=== PATIENT | male | born 1955 | race Caucasian/White ===

== ENCOUNTER 2022-11-15 17:32 | Emergency (ER) | payer OTHER, SELFPAY ==
[2022-11-15] VITALS (8 sets, daily range): BP systolic 124–166; BP diastolic 82–108; PULSE 78–100; RESP 16–19; TEMP 36.5; O2SAT 91–98; BMI 33.4
--- NOTE | 2022-11-15 17:44 | XRR_ITS ---
PROCEDURE INFORMATION: Exam: XR Chest Exam date and time: 11/15/2022 5:57 PM Age: 67 years old Clinical indication: Pain; Chest pressure; Additional info: Weakness TECHNIQUE: Imaging protocol: Radiologic exam of the chest. Views: 1 view. COMPARISON: No relevant prior studies available. FINDINGS: Lungs: Lungs are clear bilaterally. Pleural spaces: No pleural effusion. No pneumothorax. Heart/Mediastinum: The cardiac silhouette and mediastinal contours are unremarkable. Vasculature: Vascular calcifications in the aorta. Bones/joints: Unremarkable for age. XR/XR chest 1V portable [id number] IMPRESSION: 1. No acute cardiopulmonary process. 2. Incidental/nonacute findings are listed in the report.
--- NOTE | 2022-11-15 17:48 | ECG_ITS ---
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 Measurements Intervals [place] Rate: 97 P: -4 ID: [id number] QRS: -11 QRSD: 78 T: -10 QT: 325 QTc: 414 Interpretive Statements SINUS RHYTHM WITH OCCASIONAL VENTRICULAR PREMATURE COMPLEXES LOW QRS VOLTAGE IN PRECORDIAL LEADS [QRS DEFLECTION < 1.0 mV IN CHEST LEADS] INFERIOR MYOCARDIAL INFARCTION , PROBABLY OLD [40+ ms Q WAVE AND/OR ST/T ABNORMALITY IN II/aVF] INTERPRETATION BASED ON A DEFAULT AGE OF 40 YEARS No previous ECG available for comparison Electronically Signed On 11-16-2022 14:26:33 CDT by Chai Penn M.D. [id number]
[2022-11-15 17:59] LABS: Basophils # 0.1 10^3/uL (0.0-0.1); Basophils % 0.5 %; Eosinophils # 0.1 10^3/uL (0.0-0.8); Eosinophils % 0.4 %; Hematocrit 43.8 % (42.0-52.0); Hemoglobin 15.1 g/dL (11.7-16.6); Lymphocytes # 1.5 10^3/uL (0.8-4.8); Lymphocytes % 12.8 %; Mean Corpuscular HGB Conc 34.5 g/dL (30.0-36.0); Mean Corpuscular Hemoglobin 31.3 pg (28.0-34.0); Mean Corpuscular Volume 90.7 fl (80-94); Mean Platelet Volume 11.4 fL (7.4-10.4); Monocytes # 0.8 10^3/uL (0.2-0.9); Monocytes % 6.9 %; Neutrophils # 9.06 10^3/uL (1.8-7.7); Neutrophils % 78.6 %; Nucleated Red Blood Cells % 0 %; Platelet Count 178 10^3/cmm (130-400); Red Blood Count 4.83 10^6/uL (4.1-5.3); Red Cell Distribution Width 11.8 % (12.1-15.1); White Blood Count 11.5 10^3/uL (4.0-10.0)
[2022-11-15 18:21] LABS: Alanine Aminotransferase 24 U/L (0-41); Albumin Level 4.1 g/dL (3.5-5.2); Alkaline Phosphatase 58 U/L (40-130); Anion Gap 15.3 (5-19); Aspartate Amino Transferase 24 U/L (0-40); Blood Urea Nitrogen 7 mg/dL (8-23); Calcium 8.4 mg/dL (8.5-10.5); Carbon Dioxide 23 mmol/L (22-29); Chloride 95 mmol/L (98-107); Globulin 2.5 g/dL (1.3-4.6); Glomerular Filtration Rate 135.2 mL/min (90-130); Glucose 177 mg/dL (65-115); Magnesium 1.4 mg/dL (1.7-2.3); Osmolality Calculated 272 mOsm/kg (285-295); Potassium 3.3 mmol/L (3.5-5.1); Sodium 130 mmol/L (136-145); Total Bilirubin 0.9 mg/dL (0.15-1.2); Total Protein 6.6 g/dL (6.6-8.7)
--- NOTE | 2022-11-15 18:31 | CTR_ITS ---
PROCEDURE INFORMATION: Exam: CT Head Without Contrast Exam date and time: 11/15/2022 6:56 PM Age: 67 years old Clinical indication: Walking, difficulty and weakness, extremity; Bilateral; Patient HX: Sudden onset of legs feeling rubbery . Unable to bear weight; Additional info: Weakness TECHNIQUE: Imaging protocol: Computed tomography of the head without contrast. Sagittal and coronal reformatted images were created and reviewed. Radiation optimization: All CT scans at this facility use at least one of these dose optimization techniques: automated exposure control; mA and/or kV adjustment per patient size (includes targeted exams where dose is matched to clinical indication); or iterative reconstruction. REPORTING DATA: Count of CT and Cardiac NM exams in prior 12 months: This patient has received 0 known CTs and 0 known cardiac nuclear medicine studies in the 12 months prior to the current study. COMPARISON: No relevant prior studies available. RADIATION DOSE METRICS: Total DLP (mGy-cm): 1288.63 FINDINGS: Brain: No acute intracranial hemorrhage. No acute infarct. No intra-axial or extra-axial masses. Carvalho-white matter differentiation is preserved. No cerebral edema. No extra-axial fluid collections. No midline shift. No evidence for Chiari 1 malformation. Cerebral ventricles: No hydrocephalus. Paranasal sinuses: Visualized paranasal sinuses are clear. Mastoid air cells: Mastoid air cells are clear bilaterally. Orbital cavities: Globes and lenses, extraocular muscles, and optic nerves are intact bilaterally. No acute intraorbital abnormality. Nasal cavity: Mild left nasal septal deviation. Bones/joints: No acute fracture. Soft tissues: No acute abnormality of the extracranial soft tissues. Vasculature: Atherosclerotic changes in the visualized arteries. CT/CT head wo con* [id number] IMPRESSION: 1. No acute abnormality of the brain. 2. Incidental/nonacute findings are listed in the report.
--- NOTE | 2022-11-15 19:12 | ECG_ITS ---
[facility] Test Date: 2022-11-15 Pat Name: Jemal Bennett Department: Room: Gender: Male Sustainability Manager: : 1955 Requested By: Rylan Santamaria Order Number: [id number] Reading MD: Chai Penn M.D. Measurements Intervals [place] Rate: 92 P: 7 SD: 196 QRS: 4 QRSD: 76 T: 6 QT: 327 QTc: 406 Interpretive Statements SINUS RHYTHM WITH OCCASIONAL VENTRICULAR PREMATURE COMPLEXES LOW QRS VOLTAGE IN PRECORDIAL LEADS [QRS DEFLECTION < 1.0 mV IN CHEST LEADS] INFERIOR MYOCARDIAL INFARCTION , PROBABLY OLD [40+ ms Q WAVE AND/OR ST/T ABNORMALITY IN II/aVF] Compared to ECG 11/15/2022 17:48:14 No significant changes Electronically Signed On 11-16-2022 14:26:43 CDT by Chai Penn M.D. [id number]
[2022-11-15] MEDS: sodium chloride 0.9% 1,000 ML 999 ML IV (19:23)
[2022-11-15 19:27] LABS: Troponin(5th) Baseline 10 ng/L (0-15)
[2022-11-15 19:30] LABS: Alcohol Level < 10 mg/dL (0-10); Creatine Phosphokinase 98 U/L (39-308)
--- NOTE | 2022-11-15 19:45 | ED_ITS ---
HPI - Weakness General: Chief complaint: Weakness Stated complaint: WEAKNESS Time Seen by Provider: 11/15/22 18:18 Source: patient History of Present Illness: 67-year-old male who around 3 PM came in from working outside. He felt well while working outside in the yard, mowing, planting bushes, etc. He had sat down to watch the [employer] race, and try to get up from his chair, at which point he could not stand. His legs did not seem to want to work bilaterally. They were equally weak. His says that he was shaking. He remained awake and alert throughout this period. He seemed to improve to some degree. He denies headache, but did vomit according to his . He denies chest discomfort. MD Complaint: generalized weakness Onset (ago): hour(s) Duration: constant Location: LLE and RLE Migration: none Severity: moderate Quality: other Relieving factors: none Exacerbating factors: none Associated symptoms: Reports nausea and vomiting; Denies chest pain, chills, confusion, dysuria, fever(s), headache(s), myalgias or short of breath Review of Systems Const: Denies: fever(s) or chills Eyes: Denies: change in vision ENMT: Denies: throat pain Card: Denies: chest pain Resp: Denies: dyspnea, productive cough or non-productive cough GI: Reports: nausea and vomiting : Denies: dysuria Neuro: Reports: weakness in extremities and difficulty walking; Denies: headache(s), numbness in extremities, dizziness, confusion, behavioral changes or Slurred speech present Physical Exam Const: COMMON NORMALS: no acute distress GENERAL APPEARANCE: cooperative; not ill appearing and not frail appearing HENMT: COMMON NORMALS: normocephalic, atraumatic and Normal external nose present HEAD & SCALP: normocephalic and atraumatic FACE & SINUS: normal facial exam and face symmetric NOSE: Normal external nose present Eye: COMMON NORMALS: Equal, round and reactive pupils present and EOMs intact bilaterally PUPIL: Yes Equal, round and reactive pupils present Neck/C-Spine: GENERAL: Yes trachea midline Chest: CHEST: Yes Symmetrical chest wall rise Resp: COMMON NORMALS: normal respiratory effort, No retractions, No use of accessory muscles and clear to auscultation bilaterally AUSCULTATION: clear to auscultation bilaterally Cardio: COMMON NORMALS: regular rate and regular rhythm RATE: regular rate RHYTHM: regular rhythm GI: COMMON NORMALS: Normal to inspection, nondistended, normoactive bowel sounds present Extremity: COMMON NORMALS: no pedal edema Neuro: AHMET COMA SCALE: document GCS findings Ahmet coma scale eye opening: Spontaneous Ahmet coma scale verbal response: Orientated Ahmet coma scale motor response: Obey commands Kalama coma scale total score: 15 CRANIAL NERVES: Yes CN normal except as noted COORDINATION/BALANCE: rzboim-te-wjgi test normal and kkfx-yx-zjmr test normal SPEECH: speech normal SENSORY EXAM: Yes extremities (intact) MOTOR EXAM: Pronator motor function not present and Normal motor muscle tone present throughout COORDINATION: pkpgrc-pb-fodx test normal and ybrf-bc-qfsz test normal Psych: COMMON NORMALS: speech normal SPEECH: Yes normal speech Skin: COMMON NORMALS: no rashes or lesions noted GENERAL SKIN EXAM: no rashes or lesions noted Course Vital Signs: Vital signs: Vital Signs Temperature 97.7 F 11/15/22 17:47 Pulse Rate 87 11/15/22 22:11 Respiratory Rate 16 11/15/22 22:11 Blood Pressure 126/86 11/15/22 22:11 Pulse Oximetry 95 11/15/22 22:11 Oxygen Delivery Me thod Room Air 11/15/22 20:30 MDM - Weakness Medical Decision Making Symptoms seem to be resolved now. We are getting him up to walk him. Potassium mildly low at 3.3. Magnesium is low as 1.4. White blood cell count is 11.5. Chest x-ray is nonacute. Head CT shows no acute abnormality. Urinalysis is negative. EKG shows sinus rhythm with occasional VPCs. He has Q waves in 2 and aVF, but no acute ST wave changes. Orcas is normal. Rate is 90. His delta troponin is 4.5 which is borderline. The patient never had any chest pain. Symptoms are resolved. We walked the patient in the emergency department, and he walks well. He will be allowed discharge home. Lab Data 11/15/22 17:51 11/15/22 17:51 Radiology Impressions Chest X-Ray 11/15/22 17:44 IMPRESSION: 1. No acute cardiopulmonary process. 2. Incidental/nonacute findings are listed in the report. Head CT 11/15/22 18:31 IMPRESSION: 1. No acute abnormality of the brain. 2. Incidental/nonacute findings are listed in the report. Laboratory Results WBC 11.5 10^3/uL (4.0-10.0) H 11/15/22 17:51 RBC 4.83 10^6/uL (4.1-5.3) 11/15/22 17:51 Hgb 15.1 g/dL (11.7-16.6) 11/15/22 17:51 Hct 43.8 % (42.0-52.0) 11/15/22 17:51 MCV 90.7 fl (80-94) 11/15/22 17:51 MCH 31.3 pg (28.0-34.0) 11/15/22 17:51 MCHC 34.5 g/dL (30.0-36.0) 11/15/22 17:51 RDW 11.8 % (12.1-15.1) L 11/15/22 17:51 Plt Count 178 10^3/cmm (130-400) 11/15/22 17:51 MPV 11.4 fL (7.4-10.4) H 11/15/22 17:51 Neut % (Auto) 78.6 % 11/15/22 17:51 Lymph % (Auto) 12.8 % 11/15/22 17:51 Robertson % (Auto) 6.9 % 11/15/22 17:51 Eos % (Auto) 0.4 % 11/15/22 17:51 Baso % (Auto) 0.5 % 11/15/22 17:51 Neut # (Auto) 9.06 10^3/uL (1.8-7.7) H 11/15/22 17:51 Lymph # (Auto) 1.5 10^3/uL (0.8-4.8) 11/15/22 17:51 Robertson # (Auto) 0.8 10^3/uL (0.2-0.9) 11/15/22 17:51 Eos # (Auto) 0.1 10^3/uL (0.0-0.8) 11/15/22 17:51 Baso # (Auto) 0.1 10^3/uL (0.0-0.1) 11/15/22 17:51 Nucleated RBC % (auto) 0 % 11/15/22 17:51 Nucleated RBCs # 0.0 /100WBC 11/15/22 17:51 Sodium 130 mmol/L (136-145) L 11/15/22 17:51 Potassium 3.3 mmol/L (3.5-5.1) L 11/15/22 17:51 Chloride 95 mmol/L (98-107) L 11/15/22 17:51 Carbon Dioxide 23 mmol/L (22-29) 11/15/22 17:51 Anion Gap 15.3 (5-19) 11/15/22 17:51 BUN 7 mg/dL (8-23) L 11/15/22 17:51 Creatinine 0.6 mg/dL (0.7-1.2) L 11/15/22 17:51 GFR Calculation 135.2 mL/min (90-130) H 11/15/22 17:51 Glucose 177 mg/dL (65-115) H 11/15/22 17:51 Calculated Osmolality 272 mOsm/kg (285-295) L 11/15/22 17:51 Calcium 8.4 mg/dL (8.5-10.5) L 11/15/22 17:51 Magnesium 1.4 mg/dL (1.7-2.3) L 11/15/22 17:51 Total Bilirubin 0.9 mg/dL (0.15-1.2) 11/15/22 17:51 AST 24 U/L (0-40) 11/15/22 17:51 ALT 24 U/L (0-41) 11/15/22 17:51 Alkaline Phosphatase 58 U/L (40-130) 11/15/22 17:51 Creatine Kinase 98 U/L (39-308) 11/15/22 17:51 Troponin T Baseline 10 ng/L (0-15) 11/15/22 17:51 Troponin T 120 Minute 14.49 ng/L (0-15) 11/15/22 19:55 Delta Troponin T 4.49 ABS# (0-10) 11/15/22 19:55 Total Protein 6.6 g/dL (6.6-8.7) 11/15/22 17:51 Albumin 4.1 g/dL (3.5-5.2) 11/15/22 17:51 Globulin 2.5 g/dL (1.3-4.6) 11/15/22 17:51 Urine Color Yellow (Yellow) 11/15/22 19:38 Urine Appearance Clear (CLEAR) 11/15/22 19:38 Urine pH 5 (5-7) 11/15/22 19:38 Ur Specific [place] 1.025 (1.005-1.030) 11/15/22 19:38 Urine Protein Trace (Negative) 11/15/22 19:38 Urine Glucose (UA) Norm (Normal) 11/15/22 19:38 Urine Ketones Negative (Negative) 11/15/22 19:38 Urine Blood Neg (Negative) 11/15/22 19:38 Urine Nitrate Negative (Negative) 11/15/22 19:38 Urine Bilirubin Neg (Negative) 11/15/22 19:38 Urine Urobilinogen Norm mg/dL (Negative) 11/15/22 19:38 Ur Leukocyte Esterase Negative (Negative) 11/15/22 19:38 Urine RBC 0-4 /hpf (0-2) H 11/15/22 19:38 Urine WBC 0-4 /hpf (0-5) H 11/15/22 19:38 Ur Squamous Epith Cells 0-4 /hpf (0-5) H 11/15/22 19:38 Amorphous Sediment Not Reportable 11/15/22 19:38 Urine Bacteria 1+ /hpf (NONE) H 11/15/22 19:38 Urine Mucus 3+ /hpf 11/15/22 19:38 Ethyl Alcohol < 10 mg/dL (0-10) 11/15/22 17:51 Discharge Plan Discharge Patient Disposition: Home Clinical Impression: General weakness, Hypomagnesemia Condition: Stable Discharge Orders: Discharge ED (Routine); Ordered 11/15/22 Ordered By: Rylan Alfaro Patient Instructions: Weakness (ED), Hypomagnesemia (ED) Activity Restrictions/Additional Instructions: Return for chest discomfort, shortness of breath, worsening weakness, fever, mental status changes, vision or language problems, any other concerning symptoms. Follow-up with your doctor this week. Coding Level of Care Code ED Bag Machine Set Up Operator for Daisy Liriano NIH stroke score NIHSS Level Of Consciousness - 1a: 0 Level Of Consciousness Questions - 1b: Both Correct Level Of Consciousness Commands - 1c: Both Correct Best Gaze - 2: Normal Visual Ruvalcaba - 3: No Visual Loss Facial Palsy - 4: Normal Motor Arm Right - 5: No Drift Motor Arm Left - 5: No Drift Motor Leg Right - 6: No Drift Motor Leg Left - 6: No Drift Limb Ataxia - 7: Absent Sensory - 8: Normal Best Language - 9: No Aphasia Dysarthia - 10: Normal Extinction And Inattention - 11: 0 Score Total Score: 0
[2022-11-15 20:07] LABS: Add Urine Microscopic? YES; Bilirubin Urine Neg (Negative); Blood Urine Neg (Negative); Glucose Urine UA Norm (Normal); Ketones Urine Negative (Negative); Leukocyte Esterase Urine Negative (Negative); Nitrate Urine Negative (Negative); Protein Urine Trace (Negative); Specific Gravity, Urine 1.025 (1.005-1.030); Urine Appearance Clear (CLEAR); Urine Color Yellow (Yellow); Urobilinogen Urine Norm (Negative); pH Urine 5 (5-7)
[2022-11-15 20:08] LABS: Bacteria Urine 1+ /hpf; Mucus Urine 3+ /hpf; RBC Urine 0-4 /hpf (0-2); Squamous Epithelial Cell Urine 0-4 /hpf (0-5); WBC Urine 0-4 /hpf (0-5)
[2022-11-15 20:25] LABS: Troponin 5 2HR 14.49 ng/L (0-15)
[2022-11-15] MEDS: potassium chloride oral liq 20 mEq/15 mL UDC PO (20:53)
[2022-11-15 20:59] LABS: Troponin 5 2HR Delta 4.49 ABS# (0-10)
--- NOTE | 2022-11-20 11:28 | DCPLANNER ---
Patient was called due to no primary care physician - no answer at this time.
== END 2022-11-15 22:12 | disposition home or self-care (01) ==
PROVIDERS: Emergency Medicine; Emergency Provider Emergency Medicine
DX: R53.1 Weakness (principal); E83.42 Hypomagnesemia
CPT/HCPCS: 70450; 71045; 80053; 80307; 81001; 82550; 83735; 84484; 85025; 93005; 96361; 96365; 99285; J3475; J7030

== ENCOUNTER → 2023-05-10 10:33 | Outpatient (BNVA) | payer OTHER, SELFPAY | PROVIDERS: Visit Provider Internal Medicine Cardiovascular Disease | DX: I35.0 Nonrheumatic aortic (valve) stenosis (principal); I10 Essential (primary) hypertension; E11.9 Type 2 diabetes mellitus without complications; E78.5 Hyperlipidemia, unspecified; R94.31 Abnormal electrocardiogram [ECG] [EKG]; Z79.4 Long term (current) use of insulin | CPT/HCPCS: 99204 ==

== ENCOUNTER 2023-05-18 08:34 | Outpatient (CLI) | payer OTHER, SELFPAY ==
[2023-05-18 08:45] VITALS: BMI 32.3
--- NOTE | 2023-05-18 08:51 | ECG_ITS ---
[facility] Test Date: 2023-05-18 Pat Name: Jemal Bennett Department: Room: Gender: Male Quarter Supervisor: Niles Enriquez : 1955 Requested By: Faraz Osborn Order Number: [id number] Alessandro MD: Faraz Osborn M.D. Interpretive Statements NAME OF STUDY: EXERCISE SESTAMIBI STRESS TEST INDICATION: Aortic valve stenosis, PROCEDURE: The baseline electrocardiogram showed normal sinus rhythm with a possible old inferior wall MT. At the baseline, the patient's blood pressure was 144/90 mm Hg with a heart rate of 84. The patient exercised for 6 minutes and 14 seconds on a standard Esteban protocol. Patient attained a maximum heart rate of 138 beats per minute(80% of the maximum predicted heart rate) with a blood pressure at the peak exercise of 265/139 mm Hg. The EKG at the peak exercise revealed no significant changes occasional PVCs were noted on the monitor. Patient did not have any chest pain or any significant arrhythmis with the exercise Sestamibi was injected 1 minute prior to the peak exercise During the recovery phase, there were no new changes. Blood pressure at the end of the recovery phase was 163/77 mm Hg with a heart rate of 95 per minute. CONCLUSION: 1. Nonspecific EKG changes with the treadmill exercise 2. No exercise-induced chest pain. Occasional PVCs were noted on the monitor. 3. Fair exercise tolerance, attained a maximum of 10.2 METs 4. Hypertensive response to exercise 4. Sestamibi/Sestamibi perfusion results pending; see separate report. Electronically Signed On 05-27-2023 11:23:07 CDT by Faraz Osborn M.D. [id number]
--- NOTE | 2023-05-18 08:52 | NMCV_ITS ---
NM shirley perf SPECT r/s* [id number] Jemal Bennett Age: 67 Gender: M : 1955 Exam Date: 05/18/2023 08:52 Ordering Phys: Faraz Osborn MD ([email or web address]) Technologist: GALA Woods Exam Location: [facility] Indications: CORONARY ANGIOPLASTY STATUS STRESS TEST Please [facility] IMAGE PROTOCOL Rest/Stress 1 Exercise Day Radiopharmaceutical Dose (mCi) Administration Site Administered by Rest: Tc-99m 10.8 IV Fernando Arellano, GASOLINE DRAGLINE OPERATOR Sestamibi Stress:Tc-99m 32.7 IV Fernando Arellano, GASOLINE DRAGLINE OPERATOR Sestamibi Rest: 18-May-2023 60 Discovery 630 Stress: 18-May-2023 30 Discovery 630 Radiopharmaceutical was injected at 85 % maximum heart rate. Images obtained in supine and prone position. SPECT RESULTS Technical Quality: Excellent Raw Data Analysis: Normal Image Corrections: No attenuation or motion correction applied Summed Stress Score: 1 Summed Rest Score: 0 Summed Difference Score: 1 PERFUSION FINDINGS There is a very small area of reversible perfusion defect noted in inferolateral wall. This is consistent with very small sized area of ischemia in left circumflex artery territory. FUNCTIONAL RESULTS (calculated via Gated SPECT) Stress Image LV EF (%): 73 Stress EDV (mL):71 TID: 0.74 Stress ESV (mL):19 FUNCTIONAL FINDINGS: There is normal left ventricular systolic function. IMPRESSIONS 1. Very small sized area of ischemia seen in left circumflex artery territory. 2. LV systolic function is normal. Pawan Aldana MD (Electronically Signed) Final Date: 18 May 2023 17:07 S
[2023-05-18 10:25] VITALS: BP 163/77; PULSE 95
== END 2023-05-18 08:35 | disposition home or self-care (01) ==
LOC: CDL 08:35
PROVIDERS: PCP Family Medicine; Visit Provider Internal Medicine Cardiovascular Disease
DX: I35.0 Nonrheumatic aortic (valve) stenosis (principal); I25.9 Chronic ischemic heart disease, unspecified; Z98.61 Coronary angioplasty status
CPT/HCPCS: 36415; 78452; 93017; 99204; A9500

== ENCOUNTER → 2023-07-29 13:20 | Outpatient (BNVA) | payer OTHER, SELFPAY | PROVIDERS: PCP Family Medicine; Visit Provider Nurse Practitioner Family | DX: I10 Essential (primary) hypertension (principal); I35.0 Nonrheumatic aortic (valve) stenosis | CPT/HCPCS: 99214 ==